=== PATIENT | female | born 1970 | race African-American/Black ===

== ENCOUNTER 2023-09-12 16:03 | Emergency (ER) | payer SELFPAY ==
[2023-09-12] VITALS (11 sets, daily range): BP systolic 114–193; BP diastolic 70–109
[~2023-09-12] VITALS: Ht 167.6 cm; Wt 86.1 kg
[2023-09-12] MEDS ORDERED: ASPIRIN 81 MG/TAB PO ONE ×2 (16:10→17:25)
[2023-09-12] MEDS ORDERED: hydrALAZINE HCL 20 MG/ML VIAL(1 ML) IV ONE (16:25)
[2023-09-12 16:53] LABS: BASO% 0.1 % (0-3); EOS% 0.8 % (0-8); HEMOGLOBIN 12.9 g/dl (12.0-16.0); IMMATURE GRANULOCYTES 0.3 % (0.0-5.0); LYMPH% 31.4 % (15-41); MEAN CELL VOLUME 97.7 fL CALC (80.0-100.0); MEAN CORPUSCULAR HGB 32.3 pG CALC (26.0-32.0); MEAN CORPUSCULAR HGB CONC 33.1 g/dL CAL (32.0-36.0); NEUT# 4.23 thou/uL (2.00-7.15); NEUT% 59.4 % (42-76); RED BLOOD COUNT 3.99 mill/uL (4.20-5.60); RED CELL DISTRI WIDTH 12.5 % (11.5-15.5)
[2023-09-12 17:05] LABS: ALBUMIN 4.3 g/dL (3.2-5.0); ALKALINE PHOSPHATASE 132 u/l (38-126); ANION GAP 12 (6-22 (CALC)); BILIRUBIN, TOTAL 0.7 mg/dL (0.02-1.3); BUN 12 mg/dL (7-17); BUN/CREATININE RATIO 15 (12-20 (CALC)); CARBON DIOXIDE 24 mmol/l (22-30); CHLORIDE 106 mmol/l (95-108); CREATININE 0.8 mg/dL (0.5-1.0); ESTIMATED GFR 87 ML/MIN (>=90 (CALC)); POTASSIUM 3.6 mmol/l (3.5-5.1); SGOT/AST 37 u/l (14-36); SODIUM 139 mmol/l (137-146); TOTAL PROTEIN 8.9 g/dL (6.3-8.2)
[2023-09-12 17:18] LABS: MAGNESIUM 1.6 mg/dL (1.6-2.3)
[2023-09-12 17:20] LABS: PROTHROMBIN TIME 9.8 SECONDS (9.0-12.5)
[2023-09-12] MEDS ORDERED: ONDANSETRON HCl 4 MG/2 ML SDV IV ONE (17:30)
[2023-09-12] MEDS ORDERED: COZAAR25 MG PO (18:25)
[2023-09-12] MEDS ORDERED: NORVASC PO (18:25)
== END 2023-09-12 18:40 | disposition left against medical advice (07) | DRG 305 ==
LOC: ED 16:03 → ED-I 17:45 → ED 18:40
PROVIDERS: Family Medicine; Nurse Practitioner
DX: I10 Essential (primary) hypertension (principal); R07.9 Chest pain, unspecified; R11.0 Nausea; T46.5X6A Underdosing of other antihypertensive drugs, initial encounter; Z91.128 Patient's intentional underdosing of medication regimen for other reason; Z53.29 Procedure and treatment not carried out because of patient's decision for other reasons